=== PATIENT | male | born 1985 | race Asian ===

== ENCOUNTER 2020-03-16 23:23 | Emergency (ER) | payer BC ==
[~2020-03-16] VITALS: Ht 170.2 cm; Wt 94.7 kg
[2020-03-16] MEDS ORDERED: PHENYLEPHRINE NASAL 1%, 15ML SPRAY ONE (23:35)
--- NOTE | 2020-03-16 23:47 | NUR ---
PT PRESENTS TO THE ER FOR NOSE BLEED FROM RIGHT NOSTRIL. PT STATES HE'S HAD "SEVERAL NOSE BLEEDS THIS WEEK" HE ALSO REPORTS A HX OF NOSE BLEEDS BUT HAS NEVER NEEDED TO COME TO THE ER IN ORDER TO STOP THEM BEFORE. PT TO ROOM AND ERP IMMIDIATELY AT BEDSIDE TO ASSESS AND ADMINISTER MEDS. PT NOW SITTING IN BED, WITH VOMIT BAG TO SPIT, HIS HANDS AND FACE HAVE BEEN CLEANED FROM THE BLOOD AND HE HAS A NASAL PINCHER IN PLACE. HE HAS HIS PHONE AND CALL LIGHT IN REACH. PT REPORTS "IT'S SLOWING DOWN BUT STILL BLEEDING."
[2020-03-17] MEDS ORDERED: PHENYLEPHRINE NASAL 1%, 15ML SPRAY NAS ONE
[2020-03-17] MEDS ORDERED: SILVER NITRATE STICK TP ONE (00:04)
[2020-03-17 00:12] LABS: BASOPHILS # (AUTO) 0.05 x10^3/uL (0-0.1); BASOPHILS % (AUTO) 1 % (0-1); EOSINOPHILS # (AUTO) 0.05 x10^3/uL (0-0.4); EOSINOPHILS % (AUTO) 1 % (1-7); LYMPHOCYTES % (AUTO) 35 % (22-44); MD NO; MEAN CORPUSCULAR HEMOGLOBIN 28.8 pg (27.5-34.5); MEAN CORPUSCULAR HGB CONC 33.4 g/dL (33.2-36.2); MEAN CORPUSCULAR VOLUME 86.3 fL (81-97); MEAN PLATELET VOLUME 7.5 fL (7.4-10.4); MONOCYTES % (AUTO) 9 % (2-9); NEUTROPHILS # (AUTO) 3.43 x10^3/uL (1.8-6.8); NEUTROPHILS % (AUTO) 54 % (42-75); PLATELET COUNT 239 x10^3/uL (130-400); RED BLOOD COUNT 5.08 x10^6/uL (4.38-5.82); RED CELL DISTRIBUTION WIDTH 12.5 % (9.4-14.8)
--- NOTE | 2020-03-17 00:18 | NUR ---
ERP WAS BACK TO BEDSIDE AT 0000, SILVER NITRATE WAS USED IN ATTEMPT TO CAUTERIZE BLEEDING IN RIGHT NOSTRIL. PT CONTINUES TO SPIT UP BLOODY MUCOUS WITH SMALL CLOTS. NASAL PINCHER BACK IN PLACE.
[2020-03-17 00:24] LABS: ANION GAP 6 mmol/L (5-15); CALCIUM 8.9 mg/dL (8.5-10.1); CHLORIDE 108 mmol/L (98-107)
--- NOTE | 2020-03-17 01:06 | NUR ---
ERP TO BEDSIDE, GIVING EXTENSIVE EDUCATION ON DISEASE PROCESS AND POC.
[2020-03-17 01:08] VITALS: BP 132/86
== END 2020-03-17 01:26 | disposition home or self-care (01) ==
LOC: ED 03-17 01:10
DX: R04.0 Epistaxis (principal)
CPT/HCPCS: 30901; 36415; 80048; 82040; 85025; 99284